=== PATIENT | male | born 1970 | race Caucasian/White ===

== ENCOUNTER 2016-09-12 22:41 | Emergency (ER) | payer SELFPAY ==
[~2016-09-12] VITALS: Ht 180.3 cm; Wt 77.0 kg
[2016-09-12 22:43] VITALS: BP 160/105; PULSE 113; RESP 16; TEMP 98.2; O2SAT 96
[2016-09-12] MEDS ORDERED: HALOPERIDOL LACTATE 5 MG/ML AMP IM ONE (23:30)
[2016-09-12] MEDS ORDERED: SODIUM CHLOR 0.9% 1000 ML INJ 1,000 ML IV ONE (23:30)
[2016-09-12] MEDS ORDERED: LORazepam 2 MG/ML VIAL IV ONE (23:30)
--- NOTE | 2016-09-13 00:02 | PD ---
HPI Chief Complaint: Alcohol/Drug Intoxication Time Seen by Provider: 23:00 Travel History International Travel<30 days: No Contact w/Intl Traveler<30days: No Traveled to known affect area: No History of Present Illness HPI 46-year-old male arrives here by police escort. Evidently he has been drinking at least 18 beers every day for the past 2 weeks or so. He has verbalized to his that he wants to . He has history of alcoholism with occasional binge drinking in the past. He denies drug abuse. He is to medical complaint. He like to leave in fact he attempted to leave. The police reportedly did not Garcia act the patient as a courtesy however the patient became increasingly uncooperative during his stay in attempted to leave on multiple occasions. Ultimately in cooperation with the police department and the sober historian, the patient's , restraints were applied and a Garcia act was completed by the undersigned. [facility] Social History Tobacco Use: Yes Allergies-Medications (Allergen,Severity, Reaction): Coded Allergies: No Known Allergies (Unverified , 09/12/16) Reported Meds & Prescriptions Reported Meds & Active Scripts Active No Active Prescriptions or Reported Medications Review of Systems Except as stated in HPI: all other systems reviewed are Neg Physical Exam Narrative GENERAL: 46-year-old male well-nourished well-developed EtOH affect SKIN: Focused skin assessment warm/dry. HEAD: Atraumatic. Normocephalic. EYES: Pupils equal and round. No scleral icterus. No injection or drainage. ENT: No nasal bleeding or discharge. Mucous membranes pink and moist. NECK: Trachea midline. No JVD. CARDIOVASCULAR: Regular rate and rhythm. No murmur appreciated. RESPIRATORY: No accessory muscle use. Clear to auscultation. Breath sounds equal bilaterally. GASTROINTESTINAL: Abdomen soft, non-tender, nondistended. Hepatic and splenic margins not palpable. MUSCULOSKELETAL: No obvious deformities. No clubbing. No cyanosis. No edema. NEUROLOGICAL: Awake and alert. No obvious cranial nerve deficits. Motor grossly within normal limits. Normal speech. PSYCHIATRIC: Uncooperative. He denies suicidal or homicidal ideation to me. EtOH on breath Data Data Last Documented VS Vital Signs Date Time Temp Pulse Resp B/P Pulse Ox O2 Delivery O2 Flow Rate FiO2 09/13/16 00:37 95 Nasal Cannula 2 09/13/16 00:35 99 16 139/84 09/12/16 22:43 98.2 Vital signs reviewed Orders Complete Blood Count With Diff (09/12/16 23:22) Comprehensive Metabolic Panel (09/12/16 23:22) Psych Screen (09/12/16 23:22) Haloperidol Inj (Haldol Inj) (09/12/16 23:30) Lorazepam Inj (Ativan Inj) (09/12/16 23:30) Restraints Violent (09/12/16 23:22) Drug Screen, Random Urine (09/12/16:22) Alcohol (Ethanol) (09/12/16:22) Tylenol (Acetaminophen) (09/12/16:) Salicylates (Aspirin) (09/12/16:) Oximetry (09/12/16:) Iv Access Insert/Monitor (09/12/16:22) Ecg Monitoring (09/12/16:22) Sodium Chlor 0.9% 1000 Ml Inj (Ns 1000 M (09/12/16 23:30) Labs Laboratory Tests Test 09/12/16 23:50 White Blood Count 8.8 TH/MM3 Red Blood Count 4.74 MIL/MM3 Hemoglobin 15.5 GM/DL Hematocrit 45.1 % Mean Corpuscular Volume 95.2 FL Mean Corpuscular Hemoglobin 32.7 PG Mean Corpuscular Hemoglobin 34.4 % Concent Red Cell Distribution Width 13.8 % Platelet Count 237 TH/MM3 Mean Platelet Volume 8.6 FL Neutrophils (%) (Auto) 60.3 % Lymphocytes (%) (Auto) 32.4 % Monocytes (%) (Auto) 5.1 % Eosinophils (%) (Auto) 1.4 % Basophils (%) (Auto) 0.8 % Neutrophils # (Auto) 5.3 TH/MM3 Lymphocytes # (Auto) 2.8 TH/MM3 Monocytes # (Auto) 0.4 TH/MM3 Eosinophils # (Auto) 0.1 TH/MM3 Basophils # (Auto) 0.1 TH/MM3 CBC Comment DIFF FINAL Differential Comment Sodium Level 140 MEQ/L Potassium Level 4.1 MEQ/L Chloride Level 104 MEQ/L Carbon Dioxide Level 22.7 MEQ/L Anion Gap 13 MEQ/L Blood Urea Nitrogen 14 MG/DL Creatinine 0.95 MG/DL Estimat Glomerular Filtration 85 ML/MIN Rate Random Glucose 97 MG/DL Calcium Level 8.2 MG/DL Total Bilirubin 0.5 MG/DL Aspartate Amino Transf 131 U/L (AST/SGOT) Alanine Aminotransferase 127 U/L (ALT/SGPT) Alkaline Phosphatase 220 U/L Total Protein 9.0 GM/DL Albumin 3.9 GM/DL Salicylates Level LESS THAN 1.7 MG/DL Acetaminophen Level LESS THAN 2.0 MCG/ML Ethyl Alcohol Level 406 MG/DL MDM Medical Decision Making Medical Screen Exam Complete: Yes Emergency Medical Condition: Yes Medical Record Reviewed: Yes Differential Diagnosis Altered mental status/psychosis due to infection/environmental exposure/ metabolic abnormality, polypharmacy, alcohol abuse/intoxication, illicit or prescribed drug abuse, malingering/secondary gain, non-organic psychiatric disease Narrative Course The history of present illness, ROS, physical exam, review of records and medical workup performed for today's visit have reasonably safely excluded organic etiologies for the patient's presenting complaint. We will continue to monitor the patient carefully in the ER until time of evaluation by the psychiatry service. We are available for any additional medical assistance if needed during the patient's ER course. Disposition per discretion of psychiatry is appreciated. CBC & BMP Diagram 09/12/16 23:50 AST 131 ALT 127 Alk phost 220 EtOH 406 Salicylates < 1.7 APAP < 2.0 Diagnosis Primary Impression: Alcoholism /alcohol abuse Additional Impression: Suicidal ideations Scripts No Active Prescriptions or Reported Meds Chang So MD Sep 13, 2016 00:02
[2016-09-13 00:24] LABS: AUTOMATED NEUTROPHIL # 5.3 TH/MM3 (1.8-7.7); BASOPHIL # 0.1 TH/MM3 (0-0.2); BASOPHIL % 0.8 % (0.0-2.0); EOSINOPHIL # 0.1 TH/MM3 (0-0.4); EOSINOPHIL % 1.4 % (0.0-4.0); HEMATOCRIT 45.1 % (39.0-51.0); HEMO FLAGS DIFF FINAL; LYMPH % 32.4 % (9.0-44.0); LYMPHOCYTE # 2.8 TH/MM3 (1.0-4.8); MEAN CELL VOLUME 95.2 FL (80.0-100.0); MEAN CORPUSCULAR HEMOGLOBIN 32.7 PG (27.0-34.0); MEAN CORPUSCULAR HGB CONC 34.4 % (32.0-36.0); MONO % 5.1 % (0.0-8.0); NEUT % 60.3 % (16.0-70.0); PLATELET COUNT 237 TH/MM3 (150-450); RED BLOOD COUNT 4.74 MIL/MM3 (4.50-5.90); RED CELL DISTRIBUTION WIDTH 13.8 % (11.6-17.2); WHITE BLOOD COUNT 8.8 TH/MM3 (4.0-11.0)
[2016-09-13 00:34] LABS: ALT (GPT) 127 U/L (12-78)
[2016-09-13 00:35] VITALS: BP 139/84; PULSE 99; RESP 16; O2SAT 92
[2016-09-13 01:04] LABS: BLOOD UREA NITROGEN 14 MG/DL (7-18)
[2016-09-13 01:05] LABS: ALKALINE PHOSPHATASE 220 U/L (45-117); AST (GOT) 131 U/L (15-37); GLOMERULAR FILTRATION RATE 85 ML/MIN (>89); POTASSIUM 4.1 MEQ/L (3.5-5.1); SODIUM (NA) 140 MEQ/L (136-145); TOTAL BILIRUBIN ADULT 0.5 MG/DL (0.2-1.0)
[2016-09-13 01:06] LABS: ACETAMINOPHEN LESS THAN 2.0 MCG/ML (10.0-30.0); ANION GAP 13 MEQ/L (5-15); BICARBONATE 22.7 MEQ/L (21.0-32.0); CHLORIDE 104 MEQ/L (98-107)
[2016-09-13 01:55] VITALS: BP_SYST 138; BP_SYST 139; BP_DIAS 97; PULSE 95; RESP 16; O2SAT 95
[2016-09-13 06:12] VITALS: BP 135/90; PULSE 90; RESP 16; O2SAT 96
[2016-09-13 07:54] LABS: AMPHETAMINE, URINE NEG (NEG); BARBITURATES, URINE NEG (NEG); COCAINE, URINE NEG (NEG)
[2016-09-13 10:00] VITALS: BP 147/80; PULSE 80; RESP 47; O2SAT 97
[2016-09-13] MEDS ORDERED: LORA-474 PO (12:04)
[2016-09-13] MEDS ORDERED: ANTA250T PO (12:05)
--- NOTE | 2016-09-13 13:58 | PD ---
History of Present Illness Chief Complaint: Alcohol/Drug Intoxication Time Seen by Provider: 10:00 Travel History International Travel<30 Days: No Contact w/Intl Traveler<30days: No Known affected area: No Legal Status Legal Status: Garcia Act Garcia Act Signed By: History of Present Illness: 46-year-old male with long history of alcohol abuse. Patient is a binge drinker and has been drinking significant quantities of beer for the last 2 weeks. He presented last night intoxicated, agitated and wanting to leave. He was eventually Garcia acted by Dr. So. Patient is present with his at the time of this interview. They would like assistance with detoxification but they understand that we are not license for that treatment here at [place]. They are also not interested in going to [facility]. They are requesting prescriptions for Ativan and Antabuse to help the patient detox and stay off alcohol. In the past, the patient has detoxed from alcohol without any medications but his is willing to manage the medicine at this time. Patient is lia for safety. No suicidal or homicidal ideation, plan or intent. Cognition is intact. No psychosis. Patient is however very tremulous and shaky and somewhat weak. PFSH Past Medical History Medical History: Unable to Obtain Immunizations Current: No Past Surgical History Surgical History: Unable to Obtain Psychiatric History Psychiatric History Hx Psychiatric Treatment: Denied History of Inpatient Treatment: No Guns or firearms in home: No Social History Hx Alcohol Use: Yes Hx Tobacco Use: Yes Hx Substance Use: No (DENIES) Substance Use Type: Alcohol Hx of Substance Use Treatment: Yes Allergies-Medications (Allergen,Severity, Reaction): Coded Allergies: No Known Allergies (Unverified , 09/12/16) Reported Meds & Prescriptions Reported Meds & Active Scripts Active Antabuse (Disulfiram) 250 Mg Tab 250 Mg PO DAILY Ativan (Lorazepam) 1 Mg Tab 1 Mg PO Q2HR PRN Review of Systems Except as stated in HPI: all other systems reviewed are Neg Exam Alert: Yes Mcdowell: Person, Place, Date, Situation Mood: Calm Affect: Appropriate Speech: Clear, Logical Eye Contact: Normal Memory Intact: Immediate, Recent, Remote Insight/Judgement Adequate MDM Medical Decision Making Medical Record Reviewed: Yes Assessment/Plan 46-year-old male with history of alcohol abuse. This facility not license for detox and rehabilitation and patient and do not wish to go to [facility]. Patient is lia for safety and is competent to do so. No suicidal or homicidal ideation, plan or intent. Per the patient and 's request, this physician prescribed Ativan 1 mg every 2 hours when necessary withdrawal symptoms and Antabuse for the future with the understanding that he would go for medical treatment to a primary care physician or alcohol audit specialist. Orders Complete Blood Count With Diff (09/12/16 23:22) Comprehensive Metabolic Panel (09/12/16 23:22) Psych Screen (09/12/16 23:22) Haloperidol Inj (Haldol Inj) (09/12/16 23:30) Lorazepam Inj (Ativan Inj) (09/12/16 23:30) Restraints Violent (09/12/16 23:22) Drug Screen, Random Urine (09/12/16 23:22) Alcohol (Ethanol) (09/12/16 23:22) Tylenol (Acetaminophen) (09/12/16 23:22) Salicylates (Aspirin) (09/12/16 23:22) Oximetry (09/12/16 23:22) Iv Access Insert/Monitor (09/12/16 23:22) Ecg Monitoring (09/12/16 23:22) Sodium Chlor 0.9% 1000 Ml Inj (Ns 1000 M (09/12/16 23:30) Vital Signs (Adult) TONI.Q4H (09/13/16 01:41) Diet Regular Basic (09/13/16 Breakfast) Results Vital Signs Date Time Temp Pulse Resp B/P Pulse Ox O2 Delivery O2 Flow Rate FiO2 09/13/16 10:00 80 47 147/80 97 Room Air 09/13/16 06:12 90 16 135/90 96 Room Air 09/13/16 01:55 95 16 139/97 95 Room Air 09/13/16 01:55 95 16 138/97 95 Room Air 09/13/16 00:37 95 Nasal Cannula 2 09/13/16 00:35 99 16 139/84 92 Room Air 09/13/16 00:35 99 16 139/84 92 Room Air 09/12/16 22:43 98.2 113 16 160/105 96 Room Air Laboratory Tests Test 09/12/16 09/13/16 23:50 07:22 White Blood Count 8.8 Red Blood Count 4.74 Hemoglobin 15.5 Hematocrit 45.1 Mean Corpuscular Volume 95.2 Mean Corpuscular Hemoglobin 32.7 Mean Corpuscular Hemoglobin 34.4 Concent Red Cell Distribution Width 13.8 Platelet Count 237 Mean Platelet Volume 8.6 Neutrophils (%) (Auto) 60.3 Lymphocytes (%) (Auto) 32.4 Monocytes (%) (Auto) 5.1 Eosinophils (%) (Auto) 1.4 Basophils (%) (Auto) 0.8 Neutrophils # (Auto) 5.3 Lymphocytes # (Auto) 2.8 Monocytes # (Auto) 0.4 Eosinophils # (Auto) 0.1 Basophils # (Auto) 0.1 CBC Comment DIFF FINAL Differential Comment Sodium Level 140 Potassium Level 4.1 Chloride Level 104 Carbon Dioxide Level 22.7 Anion Gap 13 Blood Urea Nitrogen 14 Creatinine 0.95 Estimat Glomerular Filtration 85 Rate Random Glucose 97 Calcium Level 8.2 Total Bilirubin 0.5 Aspartate Amino Transf 131 (AST/SGOT) Alanine Aminotransferase 127 (ALT/SGPT) Alkaline Phosphatase 220 Total Protein 9.0 Albumin 3.9 Salicylates Level LESS THAN 1.7 Acetaminophen Level LESS THAN 2.0 Ethyl Alcohol Level 406 Urine Opiates Screen NEG Urine Barbiturates Screen NEG Urine Amphetamines Screen NEG Urine Benzodiazepines Screen NEG Urine Cocaine Screen NEG Urine Cannabinoids Screen NEG Diagnosis Primary Impression: Alcoholism /alcohol abuse Additional Impression: Adjustment disorder with mixed disturbance of emotions and conduct Referrals: [facility] needed Mental Health and Substance Abuse Departure Forms: Tests/Procedures Patient Instructions: General Instructions, Alcohol Intoxication (ED), Abuse of Alcohol (ED), Alcohol Dependence (ED) Prescriptions Disulfiram (Antabuse)250 Mg [id number] Mg PO DAILY #30 TAB Ref 0 Prov:Manuel Barton MD 09/13/16 Lorazepam (Ativan)1 Mg Tab1 Mg PO Q2HR PRN (WITHDRAWAL) #60 TAB Ref 0 Prov:Manuel Barton MD 09/13/16 Problem Qualifiers Manuel Barton MD Sep 13, 2016 13:58
== END 2016-09-13 11:11 | disposition home or self-care (01) ==
LOC: NEPD 22:41
DX: F10.229 Alcohol dependence with intoxication, unspecified (principal); R45.851 Suicidal ideations; F43.25 Adjustment disorder with mixed disturbance of emotions and conduct; Z72.0 Tobacco use; Y90.8 Blood alcohol level of 240 mg/100 ml or more
CPT/HCPCS: 80053; 80307; 85025; 96361; 96372; 96374; 99285; J1630; J2060; J7030